=== PATIENT | female | born 1965 | race Caucasian/White ===

== ENCOUNTER 2019-10-15 22:44 | Inpatient (IN) | payer OTHER ==
[~2019-10-15] VITALS: Ht 170.2 cm; Wt 68.0 kg
--- NOTE | 2019-10-15 22:52 | NUR ---
BIBA pt reports epigastric/abdominal pressure x 4 days, pt reports tonight she ate dinner and vomited around 2100, then a second episode with bright red blood. hx of strangulated hernia with perforation in 1996
[2019-10-15] MEDS ORDERED: ONDANSETRON 2MG/ML, 2ML IVPush ONE (23:00)
[2019-10-15] MEDS ORDERED: MORPHINE SULFATE 4 MG/ML, 1ML IVPush PRN (23:00)
[2019-10-15] MEDS ORDERED: ONDANSETRON 2MG/ML, 2ML ONE (23:03)
[2019-10-15] MEDS ORDERED: MORPHINE SULFATE 4 MG/ML, 1ML ONE (23:03)
[2019-10-15 23:19] LABS: BASOPHILS # (AUTO) 0.02 x10^3/uL (0-0.1); BASOPHILS % (AUTO) 0 % (0-1); EOSINOPHILS # (AUTO) 0.19 x10^3/uL (0-0.4); EOSINOPHILS % (AUTO) 2 % (1-7); LYMPHOCYTES # (AUTO) 1.37 x10^3/uL (1-3.4); LYMPHOCYTES % (AUTO) 14 % (22-44); MD NO; MEAN CORPUSCULAR HEMOGLOBIN 32.7 pg (27.0-34.8); MEAN CORPUSCULAR HGB CONC 33.2 g/dL (32.4-35.8); MEAN CORPUSCULAR VOLUME 98.7 fL (80-100); MONOCYTES # (AUTO) 0.42 x10^3/uL (0.2-0.8); MONOCYTES % (AUTO) 4 % (2-9); NEUTROPHILS # (AUTO) 8.02 x10^3/uL (1.8-6.8); NEUTROPHILS % (AUTO) 80 % (42-75); PLATELET COUNT 244 x10^3/uL (130-400); RED BLOOD COUNT 4.02 x10^6/uL (3.82-5.3); RED CELL DISTRIBUTION WIDTH 13.2 % (9.6-15.2)
[2019-10-15 23:29] LABS: ALANINE AMINOTRANSFERASE 309 U/L (12-78); ALBUMIN 3.5 g/dL (3.4-5.0); ANION GAP 7 mmol/L (5-15); CALCIUM 8.7 mg/dL (8.5-10.1); CHLORIDE 110 mmol/L (98-107)
[2019-10-15] MEDS ORDERED: PLEASE ENTER ALLERGIES MC SCH (23:30)
[2019-10-15 23:34] LABS: ALKALINE PHOSPHATASE 160 U/L (45-117); TOTAL PROTEIN 6.8 g/dL (6.4-8.2); TROPONIN I < 0.015 ng/mL (0.000-0.045)
[2019-10-15] MEDS ORDERED: OMNIPAQUE 350 MG/ML, 100ML BOTTLE ONE (23:52)
[2019-10-16 00:25] LABS: MICROSCOPIC INDICATED
--- NOTE | 2019-10-16 01:24 | NUR ---
Ad[facility]fo rn: [facility] No new orders.
[2019-10-16] MEDS ORDERED: SODIUM CHLORIDE 0.9% 1,000 ML IV ONE (01:25)
[2019-10-16] MEDS ORDERED: CEFTRIAXONE PMX 1GM/50ML 50 ML ONE (01:25)
[2019-10-16] MEDS ORDERED: MORPHINE SULFATE 4 MG/ML, 1ML IVPush PRN (01:30)
[2019-10-16] MEDS ORDERED: ONDANSETRON 2MG/ML, 2ML IVPush PRN ×3 (01:30→14:30)
[2019-10-16] MEDS ORDERED: CEFTRIAXONE PMX 1GM/50ML 50 ML IV ONE ×2 (01:30→05:30)
--- NOTE | 2019-10-16 02:16 | NUR ---
report given to Diandra ESPARZA to assume care upon transfer to [facility]
[2019-10-16] MEDS ORDERED: MELATONIN 5 MG TABLET PO PRN (03:00)
[2019-10-16] MEDS ORDERED: DOCUSATE 100 MG CAPSULE PO PRN (03:00)
[2019-10-16] MEDS ORDERED: hydrALAzine 20 MG/ML, 1ML IVPush PRN (03:00)
[2019-10-16] MEDS ORDERED: TEMAZEPAM 15 MG CAPSULE PO PRN (03:00)
[2019-10-16] MEDS ORDERED: ACETAMINOPHEN 325 MG TABLET PO PRN ×2 (03:00→14:30)
[2019-10-16] MEDS ORDERED: LORazepam 2 MG/ML, 1ML IVPush PRN (03:00)
[2019-10-16] MEDS ORDERED: BISACODYL 10 MG SUPP PR PRN (03:00)
[2019-10-16] MEDS ORDERED: POLYETHYLENE GLYCOL 17 GM PACKET PO PRN (03:00)
[2019-10-16 03:02] VITALS: BP 96/64
[2019-10-16] MEDS ORDERED: NICOTINE 21 MG/24 HR PATCH.TD24 TD ONE (03:30)
[2019-10-16] MEDS ORDERED: HYDROmorphone 2 MG/ML, 1ML IV PRN (03:30)
[2019-10-16] MEDS: D5%-0.9% NACL 1,000 ML IV SCH ×3 (03:42→18:26)
[2019-10-16] MEDS ORDERED: ICN cefTRIAXONE 2 MG in SYRINGE 1 EA IV SCH (05:19)
[2019-10-16] MEDS ORDERED: SODIUM CHLORIDE 0.9% 1,000ML IVBOLUS ONE ×2 (06:00)
[2019-10-16 06:06] LABS: ALBUMIN 3.2 g/dL (3.4-5.0); BILIRUBIN, DIRECT 0.3 mg/dL (0.1-0.2); BILIRUBIN,INDIRECT 0.3 mg/dL (0.0-2.0); BILIRUBIN,TOTAL 0.6 mg/dL (0.2-1.0); TOTAL PROTEIN 6.3 g/dL (6.4-8.2)
[2019-10-16 07:36] VITALS: BP 90/58
[2019-10-16] MEDS ORDERED: FAMOTIDINE 20 MG/2 ML IVPush SCH (09:00)
[2019-10-16] MEDS ORDERED: FAMOTIDINE 20 MG TABLET PO SCH (09:00)
[2019-10-16] MEDS: MORPHINE SULFATE 4 MG/ML, 1ML IVPush PRN (10:58)
[2019-10-16] MEDS ORDERED: PROPOFOL 0 ML ONE (13:26)
[2019-10-16 13:48] VITALS: BP 84/56
[2019-10-16] MEDS ORDERED: PROMETHAZINE 25 MG/ML, 1ML IVPush PRN (14:30)
[2019-10-16] MEDS ORDERED: MEPERIDINE/PF 25MG/0.5ML IVPush PRN (14:30)
[2019-10-16] MEDS ORDERED: OXYcodone 5 MG/5 ML ORAL.SOL UDC PO PRN (14:30)
[2019-10-16] MEDS ORDERED: hydrALAzine 20 MG/ML, 1ML IV PRN (14:30)
[2019-10-16] MEDS ORDERED: EPHEDRINE 50 MG/ML, 1ML IVPush PRN (14:30)
[2019-10-16] MEDS ORDERED: HYDROmorphone 1 MG/ML, 1ML INJ IVPush PRN (14:30)
[2019-10-16] MEDS ORDERED: LABETALOL 5MG/ML, 20ML IV PRN (14:30)
[2019-10-16] MEDS ORDERED: FENTANYL PF 100 MCG/2ML IV PRN (14:30)
[2019-10-16] MEDS ORDERED: MIDAZOLAM 1 MG/ML, 2ML ONE (14:34)
[2019-10-16] MEDS ORDERED: FENTANYL PF 100 MCG/2ML ONE ×2 (14:34→15:03)
[2019-10-16] MEDS ORDERED: KETOROLAC 30 MG/1 ML ONE (14:53)
[2019-10-16] MEDS ORDERED: SUCCINYLCHOLINE 20 MG/ML, 10ML ONE (15:04)
[2019-10-16] MEDS ORDERED: DEXAMETHASONE 4 MG/ML, 1ML ONE (15:04)
[2019-10-16] MEDS ORDERED: ONDANSETRON 2MG/ML, 2ML ONE (15:04)
[2019-10-16] MEDS ORDERED: PROPOFOL 10 MG/ML, 20ML ONE (15:04)
[2019-10-16] MEDS ORDERED: OMNIPAQUE 350 MG/ML, 50 ML BOTTLE ONE (15:22)
[2019-10-16 18:48] VITALS: BP 90/56
[2019-10-16 23:48] VITALS: BP 94/59
[2019-10-17] MEDS: D5%-0.9% NACL 1,000 ML IV SCH ×4 (00:47→23:55)
[2019-10-17] MEDS: CEFTRIAXONE PMX 1GM/50ML 50 ML IV SCH (00:49)
[2019-10-17] MEDS ORDERED: CEFTRIAXONE PMX 2GM/50ML 50 ML IVPB SCH (02:00)
[2019-10-17 04:38] VITALS: BP 92/57
[2019-10-17 05:01] LABS: BASOPHILS # (AUTO) 0.02 x10^3/uL (0-0.1); BASOPHILS % (AUTO) 0 % (0-1); EOSINOPHILS # (AUTO) 0.03 x10^3/uL (0-0.4); EOSINOPHILS % (AUTO) 1 % (1-7); LYMPHOCYTES % (AUTO) 23 % (22-44); MD NO; MEAN CORPUSCULAR HEMOGLOBIN 33.1 pg (27.0-34.8); MEAN CORPUSCULAR HGB CONC 33.2 g/dL (32.4-35.8); MEAN CORPUSCULAR VOLUME 99.8 fL (80-100); MEAN PLATELET VOLUME 9.7 fL (7.4-10.4); MONOCYTES # (AUTO) 0.23 x10^3/uL (0.2-0.8); MONOCYTES % (AUTO) 5 % (2-9); NEUTROPHILS # (AUTO) 3.69 x10^3/uL (1.8-6.8); NEUTROPHILS % (AUTO) 71 % (42-75); PLATELET COUNT 199 x10^3/uL (130-400); RED BLOOD COUNT 3.31 x10^6/uL (3.82-5.3); RED CELL DISTRIBUTION WIDTH 13.9 % (9.6-15.2)
[2019-10-17 05:11] LABS: ALANINE AMINOTRANSFERASE 166 U/L (12-78); ALBUMIN 2.9 g/dL (3.4-5.0); ANION GAP 8 mmol/L (5-15); CHLORIDE 111 mmol/L (98-107); CREATININE 0.98 mg/dL (0.55-1.02)
[2019-10-17 05:13] LABS: ALKALINE PHOSPHATASE 120 U/L (45-117); BILIRUBIN,TOTAL 0.4 mg/dL (0.2-1.0); TOTAL PROTEIN 5.9 g/dL (6.4-8.2)
[2019-10-17 08:16] VITALS: BP 108/65
[2019-10-17] MEDS: NICOTINE 21 MG/24 HR PATCH.TD24 TD SCH (09:20)
[2019-10-17 12:13] VITALS: BP 111/71
[2019-10-17 18:45] VITALS: BP 109/59
[2019-10-17] MEDS: METRONIDAZOLE PMX 500MG/100ML 100 ML IV SCH (19:54)
[2019-10-17] MEDS: OXYcodone IR 5MG TABLET PO PRN (22:08)
[2019-10-18 00:35] VITALS: BP 110/71
[2019-10-18] MEDS: CEFTRIAXONE PMX 1GM/50ML 50 ML IV SCH (01:00)
[2019-10-18] MEDS: OXYcodone IR 5MG TABLET PO PRN (03:03)
[2019-10-18] MEDS: METRONIDAZOLE PMX 500MG/100ML 100 ML IV SCH ×3 (04:25→22:32)
[2019-10-18 07:17] VITALS: BP 114/76
[2019-10-18] MEDS: D5%-0.9% NACL 1,000 ML IV SCH (08:09)
[2019-10-18] MEDS: NICOTINE 21 MG/24 HR PATCH.TD24 TD SCH (08:44)
[2019-10-18 13:54] LABS: HCG UR SG 1.014 (1.003-1.030)
[2019-10-18] MEDS ORDERED: FENTANYL PF 250 MCG/5ML ONE (15:13)
[2019-10-18] MEDS ORDERED: MIDAZOLAM 1 MG/ML, 2ML ONE (15:13)
[2019-10-18] MEDS ORDERED: BUPIVACAINE/EPI 0.5% 1:200K ONE (15:17)
[2019-10-18] MEDS ORDERED: ROCURONIUM 10 MG/ML,10ML ONE (15:22)
[2019-10-18] MEDS ORDERED: ONDANSETRON 2MG/ML, 2ML ONE (15:22)
[2019-10-18] MEDS ORDERED: PROPOFOL 10 MG/ML, 20ML ONE (15:22)
[2019-10-18] MEDS ORDERED: CEFAZOLIN 1,000 MG ONE (15:22)
[2019-10-18] MEDS ORDERED: SUGAMMADEX 200 MG/2 ML IVPush ONE (15:22)
[2019-10-18] MEDS ORDERED: ACETAMINOPHEN 325 MG TABLET PO PRN (16:00)
[2019-10-18] MEDS ORDERED: MEPERIDINE/PF 25MG/0.5ML IVPush PRN (16:00)
[2019-10-18] MEDS ORDERED: DIAZEPAM 5 MG/ML, 2ML IVPush PRN (16:00)
[2019-10-18] MEDS ORDERED: OXYcodone 5 MG/5 ML ORAL.SOL UDC PO PRN (16:00)
[2019-10-18] MEDS ORDERED: HYDROmorphone 1 MG/ML, 1ML INJ IVPush PRN (16:00)
[2019-10-18] MEDS ORDERED: ONDANSETRON 2MG/ML, 2ML IVPush PRN (16:00)
[2019-10-18] MEDS ORDERED: PROMETHAZINE 25 MG/ML, 1ML IVPush PRN (16:00)
[2019-10-18] MEDS ORDERED: FENTANYL PF 100 MCG/2ML ONE (16:20)
[2019-10-18] MEDS ORDERED: OXYcodone 5 MG/5 ML ORAL.SOL UDC ONE (16:21)
[2019-10-18] MEDS: FENTANYL PF 100 MCG/2ML IV PRN ×2 (16:34→16:47)
[2019-10-18] MEDS ORDERED: MEPERIDINE/PF 25MG/ML,1ML ONE (16:38)
[2019-10-18 17:43] VITALS: BP 113/72
[2019-10-18] MEDS ORDERED: HYDROmorphone 2 MG/ML, 1ML IVPush PRN (18:30)
[2019-10-18] MEDS ORDERED: morphine SULFATE 10 MG/ML, 1ML IV PRN (18:30)
[2019-10-18] MEDS ORDERED: HYDROcodone/APAP 5/325 TABLET PO PRN (18:30)
[2019-10-18] MEDS ORDERED: OXYcodone/APAP 5/325MG TABLET PO PRN (18:30)
[2019-10-18] MEDS: MORPHINE SULFATE 4 MG/ML, 1ML IVPush PRN ×2 (18:35→21:05)
[2019-10-18 20:21] VITALS: BP 108/62
[2019-10-18] MEDS: CEFOTETAN PMX 1GM/50ML 50 ML IVPB SCH (20:52)
[2019-10-18] MEDS: SODIUM CHLORIDE FLUSH 10ML SYR IVF SCH (21:00)
[2019-10-19 00:43] VITALS: BP 103/68
[2019-10-19] MEDS: CEFTRIAXONE PMX 1GM/50ML 50 ML IV SCH (01:28)
[2019-10-19] MEDS: POTASSIUM CHLORIDE 20 MEQ in LACTATED RINGERS 1,000 ML IV SCH ×3 (01:32→21:06)
[2019-10-19] MEDS: OXYcodone IR 5MG TABLET PO PRN (03:17)
[2019-10-19] MEDS: MORPHINE SULFATE 4 MG/ML, 1ML IVPush PRN (03:25)
[2019-10-19 03:47] VITALS: BP 106/69
[2019-10-19] MEDS: METRONIDAZOLE PMX 500MG/100ML 100 ML IV SCH ×2 (06:26→16:14)
[2019-10-19] MEDS: ENOXAPARIN 40 MG/0.4 ML SQ SCH (06:26)
[2019-10-19 07:05] VITALS: BP 123/77
[2019-10-19] MEDS: ONDANSETRON 2MG/ML, 2ML IV PRN (08:58)
[2019-10-19] MEDS: CEFOTETAN PMX 1GM/50ML 50 ML IVPB SCH (09:04)
[2019-10-19] MEDS: SODIUM CHLORIDE FLUSH 10ML SYR IVF SCH ×2 (09:05→21:00)
[2019-10-19] MEDS: NICOTINE 21 MG/24 HR PATCH.TD24 TD SCH (09:05)
[2019-10-19] MEDS ORDERED: BUTALB/APAP/CAFFEINE 50MG/325MG/40MG PO ONE (13:00)
[2019-10-19 13:24] VITALS: BP 101/60
[2019-10-19 19:12] VITALS: BP 109/74
[2019-10-20] MEDS: METRONIDAZOLE PMX 500MG/100ML 100 ML IV SCH ×3 (00:05→16:41)
[2019-10-20] MEDS: CEFTRIAXONE PMX 1GM/50ML 50 ML IV SCH (01:29)
[2019-10-20] MEDS: OXYcodone IR 5MG TABLET PO PRN (01:36)
[2019-10-20 02:03] VITALS: BP 112/75
[2019-10-20] MEDS: ENOXAPARIN 40 MG/0.4 ML SQ SCH (06:21)
[2019-10-20] MEDS: POTASSIUM CHLORIDE 20 MEQ in LACTATED RINGERS 1,000 ML IV SCH ×2 (07:12→20:00)
[2019-10-20 07:16] VITALS: BP 118/75
[2019-10-20] MEDS: SODIUM CHLORIDE FLUSH 10ML SYR IVF SCH ×2 (08:12→21:00)
[2019-10-20] MEDS: NICOTINE 21 MG/24 HR PATCH.TD24 TD SCH (08:12)
[2019-10-20] MEDS: ONDANSETRON 2MG/ML, 2ML IV PRN (13:53)
[2019-10-20] MEDS ORDERED: BISACODYL 10 MG SUPP PR PRN (14:00)
[2019-10-20 14:29] VITALS: BP 122/62
[2019-10-20 15:03] LABS: BASOPHILS # (AUTO) 0.04 x10^3/uL (0-0.1); BASOPHILS % (AUTO) 1 % (0-1); EOSINOPHILS # (AUTO) 0.13 x10^3/uL (0-0.4); EOSINOPHILS % (AUTO) 2 % (1-7); LYMPHOCYTES # (AUTO) 0.99 x10^3/uL (1-3.4); LYMPHOCYTES % (AUTO) 13 % (22-44); MD NO; MEAN CORPUSCULAR HEMOGLOBIN 32.6 pg (27.0-34.8); MEAN CORPUSCULAR VOLUME 98.9 fL (80-100); MEAN PLATELET VOLUME 10.3 fL (7.4-10.4); MONOCYTES % (AUTO) 10 % (2-9); NEUTROPHILS # (AUTO) 5.81 x10^3/uL (1.8-6.8); NEUTROPHILS % (AUTO) 75 % (42-75); PLATELET COUNT 195 x10^3/uL (130-400); RED BLOOD COUNT 3.34 x10^6/uL (3.82-5.3); RED CELL DISTRIBUTION WIDTH 13.7 % (9.6-15.2)
[2019-10-20 15:11] LABS: ALANINE AMINOTRANSFERASE 64 U/L (12-78); ALBUMIN 2.4 g/dL (3.4-5.0); ANION GAP 9 mmol/L (5-15); CALCIUM 8.2 mg/dL (8.5-10.1); CHLORIDE 107 mmol/L (98-107); CREATININE 0.88 mg/dL (0.55-1.02)
[2019-10-20 15:13] LABS: ALKALINE PHOSPHATASE 78 U/L (45-117); BILIRUBIN,TOTAL 0.6 mg/dL (0.2-1.0); TOTAL PROTEIN 5.6 g/dL (6.4-8.2)
[2019-10-20 19:10] VITALS: BP 108/69
[2019-10-21] MEDS: METRONIDAZOLE PMX 500MG/100ML 100 ML IV SCH ×2 (00:04→08:57)
[2019-10-21 00:16] VITALS: BP 119/70
[2019-10-21] MEDS: CEFTRIAXONE PMX 1GM/50ML 50 ML IV SCH (01:39)
[2019-10-21] MEDS: ENOXAPARIN 40 MG/0.4 ML SQ SCH (06:27)
[2019-10-21 08:31] VITALS: BP 102/58
[2019-10-21] MEDS: SODIUM CHLORIDE FLUSH 10ML SYR IVF SCH (08:58)
[2019-10-21] MEDS: NICOTINE 21 MG/24 HR PATCH.TD24 TD SCH (08:58)
[2019-10-21] MEDS: POTASSIUM CHLORIDE 20 MEQ in LACTATED RINGERS 1,000 ML IV SCH (11:12)
[2019-10-21] MEDS ORDERED: HYDR-3240 PO (11:27)
[2019-10-21 12:00] VITALS: BP 120/63
== END 2019-10-21 12:50 | disposition home or self-care (01) | DRG 417 ==
LOC: ED 10-16 01:08 → EDIP 10-16 01:25 → 5SO 10-16 02:51 → 4NE 10-16 16:29 → DCLOUNGE 10-21 12:35
PROVIDERS: ADMIT Internal Medicine; ATTEND Internal Medicine
PROC: 0FC98ZZ Extirpation of Matter from Common Bile Duct, Via Natural or Artificial Opening Endoscopic (ICD-10-PCS; 2019-10-16)
PROC: BF141ZZ Fluoroscopy of Gallbladder, Bile Ducts and Pancreatic Ducts using Low Osmolar Contrast (ICD-10-PCS; 2019-10-16)
PROC: 0F798DZ Dilation of Common Bile Duct with Intraluminal Device, Via Natural or Artificial Opening Endoscopic (ICD-10-PCS; principal; 2019-10-16 16:30)
PROC: 0FT44ZZ Resection of Gallbladder, Percutaneous Endoscopic Approach (ICD-10-PCS; 2019-10-18)
DX: K80.63 Calculus of gallbladder and bile duct with acute cholecystitis with obstruction (principal); K85.10 Biliary acute pancreatitis without necrosis or infection; N39.0 Urinary tract infection, site not specified; F17.210 Nicotine dependence, cigarettes, uncomplicated; D64.9 Anemia, unspecified; J44.9 Chronic obstructive pulmonary disease, unspecified; K82.8 Other specified diseases of gallbladder; Z20.828 Contact with and (suspected) exposure to other viral communicable diseases; Z79.899 Other long term (current) drug therapy
CPT/HCPCS: 36415; 74018; 74328; 96361; 96365; 96375; 99291; J7042; 74177; 74181; 80053; 80076; 81001; 81025; 82150; 83690; 83735; 84100; 84484; 85025; 87077; 87086; 87186; 87635; 88304; 93005; C1729; G0378; J0690; J0696; J1100; J1650; J1885; J2175; J2250; J2405; J2704; J3010; J3480; Q9967; C1760; C1769; C1894; C2625; J0330; J2270; J3490; J7030; J7120

== ENCOUNTER → 2019-11-30 | Outpatient (CLI) | payer MEDICARE, OTHER ==
[~2019-11-30] MED LIST: HYDR-3240 PO; IBUP1CAP12 PO; MULT-108 PO; nicotine patch; tylenol pm PO
== END | disposition home or self-care (01) ==
LOC: STAR 15:00
PROVIDERS: ATTEND Internal Medicine
DX: Z01.812 Encounter for preprocedural laboratory examination (principal); Z20.828 Contact with and (suspected) exposure to other viral communicable diseases; K86.89 Other specified diseases of pancreas
CPT/HCPCS: 36415; 87635

== ENCOUNTER 2019-12-04 08:46 | Day surgery (SDC) | payer MEDICARE, OTHER ==
[~2019-12-04] VITALS: Ht 170.2 cm; Wt 55.4 kg
[2019-12-04] MEDS ORDERED: CHLORHEXIDINE 15 ML UDC MM STA (09:18)
[2019-12-04] MEDS ORDERED: LACTATED RINGERS 1,000 ML IV SCH (09:18)
[2019-12-04 09:22] VITALS: BP 97/55
[2019-12-04] MEDS ORDERED: FENTANYL PF 250 MCG/5ML ONE (10:37)
[2019-12-04] MEDS ORDERED: MIDAZOLAM 1 MG/ML, 2ML ONE (10:37)
[2019-12-04] MEDS ORDERED: ROCURONIUM 10MG/ML,5ML ONE (11:18)
[2019-12-04] MEDS ORDERED: NEOSTIGMINE 1 MG/ML, 10ML ONE (11:18)
[2019-12-04] MEDS ORDERED: SUGAMMADEX 200 MG/2 ML IVPush ONE (11:18)
[2019-12-04] MEDS ORDERED: ONDANSETRON 2MG/ML, 2ML ONE (11:18)
[2019-12-04] MEDS ORDERED: GLYCOPYRROLATE 0.2MG/1ML, 5ML ONE (11:18)
[2019-12-04] MEDS ORDERED: CEFAZOLIN 1,000 MG ONE (11:18)
[2019-12-04] MEDS ORDERED: DEXAMETHASONE 4 MG/ML, 1ML ONE (11:18)
[2019-12-04] MEDS ORDERED: PROPOFOL 10 MG/ML, 20ML ONE (11:18)
[2019-12-04] MEDS ORDERED: OMNIPAQUE 350 MG/ML, 50 ML BOTTLE ONE (13:07)
== END 2019-12-04 14:20 | disposition home or self-care (01) ==
LOC: OUT 08:46
PROVIDERS: ATTEND Internal Medicine
DX: Z46.59 Encounter for fitting and adjustment of other gastrointestinal appliance and device (principal); K80.50 Calculus of bile duct without cholangitis or cholecystitis without obstruction; K83.8 Other specified diseases of biliary tract; Z79.899 Other long term (current) drug therapy; Z88.8 Allergy status to other drugs, medicaments and biological substances; Z91.018 Allergy to other foods
CPT/HCPCS: 43259; 43264; 43275; 74328; C1769; J0690; J1100; J2250; J2405; J2704; J2710; J3010; J7120; Q9967